=== PATIENT | female | born 1945 | race Caucasian/White ===

== ENCOUNTER 2020-07-09 10:51 | Emergency (ER) | payer MEDICARE, OTHER ==
[~2020-07-09] VITALS: Ht 157.5 cm; Wt 65.8 kg
--- NOTE | 2020-07-09 11:36 | NUR ---
Pt to Xray
--- NOTE | 2020-07-09 11:39 | NUR ---
Pt states that she fell from toilet, reaching for toilet paper. Hit head, knee, R shoulder. Pt states 07/13 R shoulder pain. Denies blood thinners.
[2020-07-09 12:44] VITALS: BP 128/78
--- NOTE | 2020-07-09 12:44 | NUR ---
R arm placed in immobilizer prior to DC
== END 2020-07-09 12:48 | disposition home or self-care (01) ==
LOC: ED 11:30
DX: S40.011A Contusion of right shoulder, initial encounter (principal); W18.39XA Other fall on same level, initial encounter; Y93.89 Activity, other specified; Y92.59 Other trade areas as the place of occurrence of the external cause; Y99.8 Other external cause status
CPT/HCPCS: 29505; 99283